=== PATIENT | female | born 1980 | race Caucasian/White ===

== ENCOUNTER 2024-10-10 18:47 | Emergency (ER) | payer MEDICAID ==
[~2024-10-10] VITALS: Ht 167.6 cm; Wt 59.0 kg
[2024-10-10 18:49] VITALS: TEMP 36.9; O2SAT 98
[2024-10-10 21:16] LABS: BASOPHILS % 1.1 % (0.0-2.0); EOSINOPHILS % 0.4 % (0.0-5.0); HEMATOCRIT. 29.4 % (36.0-48.0); HEMOGLOBIN. 9.3 g/dL (12.0-16.0); LYMPHOCYTES % 17.4 % (20.0-50.0); MEAN CORPUSCULAR HEMOGLOBIN 22.1 pg (28.0-32.0); MEAN CORPUSCULAR HGB CONC 31.6 g/dL (31.0-37.0); MEAN CORPUSCULAR VOLUME 69.9 fL (81.0-99.0); MEAN PLATELET VOLUME 7.8 fl (7.4-10.4); MONOCYTES % 5.5 % (2.0-8.0); NEUTROPHILS % 75.6 % (40.0-76.0); PLATELET 334 x1000/uL (130-400); RED BLOOD CELL COUNT 4.21 mill/uL (4.2-5.4); RED CELL DISTRIBUTION WIDTH 17.8 % (11.6-14.6); WHITE BLOOD COUNT 5.8 x1000/uL (4.5-11.0)
[2024-10-10 21:20] LABS: DIFFERENTIAL COMMENT 1
[2024-10-10 21:21] LABS: ADD RBC MORPHOLOGY YES; CHLORIDE 107 mEq/L (98-107); POTASSIUM 3.7 mEq/L (3.5-5.1); SODIUM 140 mEq/L (136-145)
[2024-10-10 21:22] LABS: CALCIUM 8.6 mg/dL (8.7-10.4); CARBON DIOXIDE 25 mEq/L (21-32)
[2024-10-10 21:27] LABS: CREATININE 0.6 mg/dL (0.6-1.0); GLUCOSE 95 mg/dL (70-105); UREA NITROGEN BLOOD 13 mg/dL (9-23)
[2024-10-10] MEDS ORDERED: IBUP-2029 MT (21:31)
[2024-10-10] MEDS ORDERED: ALBU90AE INH (21:31)
[2024-10-10] MEDS ORDERED: DIVA250T4 MT (21:31)
[2024-10-10] MEDS: KETOROLAC 30MG/ML VIAL IM ONE (21:55)
[2024-10-10 22:07] LABS: ANISOCYTOSIS 1+; HYPOCHROMASIA 1+; MICROCYTOSIS 3+; PLATELET ESTIMATE NORMAL
[2024-10-10 22:20] VITALS: BP 113/72; PULSE 94; RESP 20; O2SAT 100
== END 2024-10-10 22:20 | disposition home or self-care (01) ==
LOC: ER 18:47
DX: R51.9 Headache, unspecified (principal); J45.909 Unspecified asthma, uncomplicated; G40.909 Epilepsy, unspecified, not intractable, without status epilepticus; Z76.0 Encounter for issue of repeat prescription; Z79.899 Other long term (current) drug therapy; Z88.0 Allergy status to penicillin
CPT/HCPCS: 99283; 80048; 81025; 85025; 36415; 96372; J1885

== ENCOUNTER 2025-03-22 14:18 | Emergency (ER) | payer MEDICAID, OTHER ==
[~2025-03-22] VITALS: Ht 170.2 cm; Wt 64.0 kg
[~2025-03-22 14:18] MED LIST: ALBU90AE INH; DIVA-18 PO
[2025-03-22 14:28] VITALS: O2SAT 98
[2025-03-22] MEDS: ACETAMINOPHEN 325MG TABLET PO ONE (15:07)
[2025-03-22] MEDS ORDERED: DIVA500T51 MT (15:47)
[2025-03-22] MEDS ORDERED: ALBU18HF2 IH (15:47)
[2025-03-22 15:54] VITALS: BP 106/72; PULSE 91; RESP 17; TEMP 36.8; O2SAT 100
== END 2025-03-22 16:26 | disposition home or self-care (01) ==
LOC: ER 14:18
DX: M25.562 Pain in left knee (principal); E11.9 Type 2 diabetes mellitus without complications; F41.9 Anxiety disorder, unspecified; J45.909 Unspecified asthma, uncomplicated; Z88.5 Allergy status to narcotic agent; Z88.0 Allergy status to penicillin
CPT/HCPCS: 99283; 73560; 96372; A6449